=== PATIENT | male | born 1995 | race Caucasian/White ===

== ENCOUNTER 2021-10-01 09:33 | Day surgery (SDC) | payer OTHER ==
[2021-09-24 17:57] VITALS: BMI 39.5
[2021-10-01 10:03] VITALS: TEMP 97.8
[2021-10-01] MEDS ORDERED: MIDAZOLAM HCL 2 MG/2 ML SINGLE DOSE VIAL ONE ×4 (10:43→12:54)
[2021-10-01] MEDS ORDERED: ROPIVACAINE HCL/PF 100 MG/20 ML VIAL ONE (10:43)
[2021-10-01] MEDS ORDERED: BUPIVACAINE HCL/EPINEPHRINE/PF 30 ML VIAL IJ ONE (10:52)
[2021-10-01] MEDS ORDERED: PROPOFOL 20 ML ONE ×3 (11:29)
[2021-10-01] MEDS ORDERED: oxyCODONE HCL 5 MG TABLET PO PRN ×2 (13:52)
[2021-10-01] MEDS ORDERED: ONDANSETRON 4 MG/2 ML VIAL IVPUSH PRN (13:52)
[2021-10-01 14:03] VITALS: PULSE 89
[2021-10-01 14:59] VITALS: BP 107/79
== END 2021-10-01 14:45 | disposition home or self-care (01) ==
LOC: FASU 09:33
PROVIDERS: ATTEND Orthopaedic Surgery
PROC: 0RQJ4ZZ Repair Right Shoulder Joint, Percutaneous Endoscopic Approach (ICD-10-PCS; principal; 2021-10-01 11:57)
DX: S43.431A Superior glenoid labrum lesion of right shoulder, initial encounter (principal); X58.XXXA Exposure to other specified factors, initial encounter; Y93.9 Activity, unspecified; Y92.9 Unspecified place or not applicable